=== PATIENT | female | born 1990 | race Caucasian/White ===

== ENCOUNTER 2019-01-05 13:52 | Outpatient (CLI) ==
[2014-02-19 13:40] VITALS: BMI 25.6
== END 2019-01-05 13:53 | disposition home or self-care (01) ==
LOC: LAB 13:52
PROVIDERS: ATTEND Specialist
DX: R53.83 Other fatigue (principal); E84.9 Cystic fibrosis, unspecified; Z20.6 Contact with and (suspected) exposure to human immunodeficiency virus [HIV]
CPT/HCPCS: 36415; 86644; 86645; 86705; 86900; 86901; 87800